=== PATIENT | male | born 1960 | race Two or more races ===

== ENCOUNTER 2022-03-20 15:45 | Inpatient (IN) | payer OTHER ==
[~2022-03-20] VITALS: Ht 170.2 cm; Wt 81.6 kg
--- NOTE | 2022-03-20 16:32 | NUR ---
PTE RECIBIDO EN AMBULANCIA EN [facility]ANIA DE [facility] HUMACAO ACEPTADO POR DR JAVIER,PTE CON POBRE HIGIENE,DISARTRIA POR DIAGNOSTICO PREVIO DE STROKE,PARAMEDICOS INDICAN HOGAR NO HABITABLE,POBRE HISTORIDOR.TRAIDO POR PRESION ARTERIAL DINA Y DKA.SE UBICA EN AREA DE CPU.
--- NOTE | 2022-03-20 18:35 | NUR ---
PACIENTE EVALUADO POR EL QUIEN ORDENA TRATAMIENTO. SE REALIZAN MUESTRAS BAJO MEDIDAS ASEPTICAS Y SE ADMINISTRAN MEDICAMENTOS JACK ORDEN MEDICA SE REALIZA EKG Y SE PRESENTA A . SE CONECTA A MONITOR CARDIACO Y OXIMETRIA. SE NOTIFICAN ABG A MS GARRETT.
[2022-03-21] MEDS ORDERED: HUMULIN 70100 UNIT/2 (13:48)
[2022-03-21] MEDS ORDERED: BAYER THERAPY325 MG (13:48)
[2022-03-21] MEDS ORDERED: FUROSEMIDE20 MG (13:48)
[2022-03-21] MEDS ORDERED: AMLODIPINE BESY10 MG (13:48)
[2022-03-21] MEDS ORDERED: DOXAZOSIN MESYLA8 MG (13:48)
[2022-03-21] MEDS ORDERED: ATORVASTATIN CA80 MG (13:48)
[2022-03-21] MEDS ORDERED: METFORMIN HCL1000 M3 (13:48)
[2022-03-21] MEDS ORDERED: GLIPIZIDE10 MG (13:48)
[2022-03-21] MEDS ORDERED: LISINOPRIL40 MG (13:48)
[2022-03-21] MEDS ORDERED: OMEPRAZOLE20 MG (13:49)
[2022-03-26] MEDS ORDERED: HUMALOG100 UNIT/1 SUBCUTANEO (09:43)
[2022-03-26] MEDS ORDERED: ISOSORBIDE MONO30 MG PO (09:43)
[2022-03-26] MEDS ORDERED: AMLODIPINE BESY10 MG PO (09:43)
[2022-03-26] MEDS ORDERED: Lantus 1000 UNITS/10 SUBCUTANEO (09:43)
[2022-03-26] MEDS ORDERED: DOXAZOSIN MESYLA8 MG PO (09:43)
[2022-03-26] MEDS ORDERED: LIPITOR40 MG PO (09:43)
== END 2022-03-26 18:42 | disposition home or self-care (01) | DRG 638 ==
LOC: ER 15:45 → ICU-2 19:54 → ICU 03-21 00:38 → MEDJ 03-24 18:47
PROVIDERS: ADMIT Internal Medicine; ATTEND Internal Medicine
PROC: B24BZZZ Ultrasonography of Heart with Aorta (ICD-10-PCS; 2022-03-20)
PROC: 4A12X4Z Monitoring of Cardiac Electrical Activity, External Approach (ICD-10-PCS; principal; 2022-03-24)
DX: E11.10 Type 2 diabetes mellitus with ketoacidosis without coma (principal); I69.351 Hemiplegia and hemiparesis following cerebral infarction affecting right dominant side; N17.8 Other acute kidney failure; E86.0 Dehydration; I11.0 Hypertensive heart disease with heart failure; I50.9 Heart failure, unspecified; Z20.822 Contact with and (suspected) exposure to COVID-19; Z79.4 Long term (current) use of insulin